=== PATIENT | female | born 1995 | race Caucasian/White ===

== ENCOUNTER 2016-11-15 21:18 | Emergency (ER) | payer OTHER ==
[~2016-11-15] VITALS: Ht 170.2 cm; Wt 67.0 kg
[2016-11-15 21:31] VITALS: BP 133/70; PULSE 99; TEMP 37.5; O2SAT 97; Ht 170.2 cm; Wt 67.0 kg
[2016-11-15] MEDS ORDERED: IBUPROFEN 600 MG TAB PO STA (21:50)
[2016-11-15] MEDS ORDERED: ACETAMINOPHEN 500 MG TAB PO STA (21:50)
--- NOTE | 2016-11-15 22:23 | DIAGNOSTIC IMAGING REPORT ---
RIGHT KNEE 3 VIEWS CLINICAL HISTORY: Right knee injury. FINDINGS: AP, crosstable lateral, and sunrise views of the right knee are obtained. No prior studies are available for comparison at the time of dictation. The skeletal structures are well mineralized. No fracture is seen. The joint spaces of the knee are well-maintained. There is no joint effusion. The overlying soft tissues are within normal limits. IMPRESSION: Unremarkable radiographic assessment of the right knee. Electronically signed by: Matt Marcus M.D. 11/15/2016 10:21 PM Dictated Date/Time: 11/15/2016 10:20 PM
--- NOTE | 2016-11-15 23:18 | EMERGENCY ROOM VISIT NOTE ---
ED Visit Note First contact with patient: 21:43 CHIEF COMPLAINT: knee pain HISTORY OF PRESENT ILLNESS: This 21 year old female patient presents to the emergency department after sustaining an injury to the right knee while playing soccer about one hour ago. The patient denies any other injuries besides their knee. The patient is without swelling or bruising. There is pain behind the knee. They rate the pain as dull and 7/10. The patient states they are not comfortably to walk on it. No numbness or tingling. No previous injuries to this knee. No ankle, foot or hip pain. REVIEW OF SYSTEMS: A 6 system review of systems was completed with positives and pertinent negatives listed in the HPI. ALLERGIES: NKDA MEDICATIONS: No chronic medication PMH: Otherwise healthy SOCIAL HISTORY: Student and lives locally PHYSICAL EXAM: Vital Signs: Reviewed Nurse's notes, vital signs stable. GENERAL : White female, no acute distress, but appears in pain, well-developed, well- nourished. MENTAL STATUS: Alert, oriented to person place and time, and cooperative. MUSCULOSKELETAL: The right knee is not significantly swollen. There is no ecchymosis. There is no joint effusion present. The patient is tender posteriorly. There is no joint line tenderness. The patella does not subluxate. Range of motion is normal. Strength of the quads and hamstrings is 5/ 5. Eb's is negative. Luan's and Anterior Drawer tests are negative. There is no laxity with varus and valgus stressing. The foot and toes are warm and well-perfused. Dorsalis pedis pulse 2+. Sensation to pain and light touch is intact. Capillary refill less than 2 seconds. RIGHT KNEE 3 VIEWS CLINICAL HISTORY: Right knee injury. FINDINGS: AP, crosstable lateral, and sunrise views of the right knee are obtained. No prior studies are available for comparison at the time of dictation. The skeletal structures are well mineralized. No fracture is seen. The joint spaces of the knee are well-maintained. There is no joint effusion. The overlying soft tissues are within normal limits. IMPRESSION: Unremarkable radiographic assessment of the right knee. EMERGENCY DEPARTMENT COURSE: Physical exam and history were performed. Nursing notes and EMR were reviewed. The patient appears to have suffered injury to her right knee while playing soccer just prior to arrival. The patient was given ibuprofen and Tylenol here in the department. Ice packs were placed. X-ray does not show evidence of acute fracture or dislocation. The patient will be treated conservatively with knee immobilizer and crutches. She is to follow with orthopedics with any ongoing or persistent symptoms. She was otherwise invited back to the ER with any new, worsening, or concerning complaints. Current/Historical Medications No Active Prescriptions or Reported Meds Allergies Coded Allergies: No Known Allergies (Unverified , 11/15/16) Vital Signs Date Time Temp Pulse Resp B/P Pulse Ox O2 Delivery O2 Flow Rate FiO2 11/15/16 21:31 37.5 99 18 133/70 97 Room Air Medications Administered Medications (Trade) Dose Ordered Sig/[place] Route Start Time Stop Time Status Last Admin Dose Admin Acetaminophen (Tylenol Tab) 1,000 mg NOW STAT PO 11/15/16 21:50 11/15/16 21:51 DC 11/15/16 22:11 1,000 MG Ibuprofen (Motrin Tab) 600 mg NOW STAT PO 11/15/16 21:50 11/15/16 21:51 DC 11/15/16 22:11 600 MG Departure Information Impression Primary Impression: Injury of right knee Dispostion Home / Self-Care Condition GOOD Prescriptions No Active Prescriptions or Reported Meds Referrals Alonso Vu, DO Forms HOME CARE DOCUMENTATION FORM, IMPORTANT VISIT INFORMATION Patient Instructions My [facility] Additional Instructions You were seen and evaluated today on an emergency basis only. This is not a substitute for, or an effort to provide, complete comprehensive medical care. It is not possible to recognize and treat all injuries or illnesses in a single emergency department visit. For this reason it is recommended that you followup with orthopedics, Dr. Vu 's office, with any ongoing or persistent symptoms. For baseline pain relief you may alternate ibuprofen and acetaminophen every 4 hours for pain control. Take 600 mg ibuprofen (Advil) and then 4 hours later take 1000 mg acetaminophen (Tylenol). Do not take more than 3000 mg acetaminophen in a single day. Use your knee immobilizer and crutches for the next 4-5 days and slowly advance activity as tolerated. If you have persistent discomfort please follow-up with orthopedics. You are welcome to return to the emergency department anytime with new, worsening, or concerning symptoms.
== END 2016-11-15 23:06 | disposition home or self-care (01) ==
LOC: C.EDB 21:20 → C.EDD 23:06
DX: S89.91XA Unspecified injury of right lower leg, initial encounter (principal); X58.XXXA Exposure to other specified factors, initial encounter; Y93.66 Activity, soccer